=== PATIENT | female | born 1990 | race Caucasian/White ===

== ENCOUNTER 2019-11-13 | Inpatient (IN) | payer MEDICAID ==
[~2019-11-13] VITALS: Ht 157.5 cm; Wt 105.7 kg
[2019-11-13 00:04] VITALS: BP 105/68
--- NOTE | 2019-11-13 00:10 | NUR ---
PT TAKEN TO BED 6
--- NOTE | 2019-11-13 00:20 | NUR ---
29 year old female patient presents to the emergency department from home with c/o LUQ pain and epigastric pain that started x 2 hours. pt denies having hx of abdominal pain. upon arrival pt a/o x 4, gcs 15. denies headache/blurry vision. abdomen soft and non tender. normoactive bowel sounds on all quadrants. rr even and unlabored. denies sob/cough. denies diarrhea or constipation. + n/v x 2 hours. denies any injury or trauma. no other s/sx observed. DAMIAN Becker made aware of pt status. Awaiting MSE. pmhx: denies nka negative covid screen.
[2019-11-13] MEDS ORDERED: ONDANSETRON 4 MG/2 ML VIAL ONE (00:33)
[2019-11-13] MEDS ORDERED: MORPHINE SULFATE 4 MG/ML SYR ONE (00:34)
[2019-11-13] MEDS ORDERED: MORPHINE SULFATE 4 MG/ML SYR IVP ONE (00:35)
[2019-11-13] MEDS ORDERED: ONDANSETRON 4 MG/2 ML VIAL IVP ONE (00:35)
[2019-11-13 00:51] LABS: EOSINOPHILS # (AUTO) 0.1 K/uL (0-0.4); HEMATOCRIT 39.8 % (36-48); MONOCYTES # (AUTO) 0.9 K/uL (0.8-1.0); NEUTROPHILS # (AUTO) 5.7 K/uL (1.8-7.7)
[2019-11-13 00:55] LABS: BASOPHILS % (AUTO) 0.3 % (0.0-2.0); EOSINOPHILS % (AUTO) 1.2 % (0.0-4.0); HEMOGLOBIN 13.4 g/dL (12.0-16.0); LYMPHOCYTES % (AUTO) 36.9 % (20.5-51.1); MEAN CORPUSCULAR HEMOGLOBIN 29 pg (27-31); MEAN CORPUSCULAR HGB CONC 34 g/dL (33-37); MEAN CORPUSCULAR VOLUME 87.1 fL (80-94); MONOCYTES % (AUTO) 8.2 % (1.7-9.3); NEUTROPHILS % (AUTO) 53.4 % (42.2-75.2); PLATELET COUNT (AUTO) 107 K/uL (140-450); RED BLOOD CELL COUNT(AUTO) 4.57 MIL/uL (4.20-5.40); RED CELL DISTRIBUTION WIDTH 13.9 % (11.6-13.7); WHITE BLOOD COUNT (AUTO) 10.7 K/uL (4.8-10.8)
--- NOTE | 2019-11-13 01:00 | NUR ---
reports decreased pain from 10/10 to 5/10 and tolerable. no further needs at this time.
[2019-11-13 01:01] LABS: ANION GAP 16.4 (8-16); ASPARTATE AMINOTRANSFERASE 119 U/L (15-37); CARBON DIOXIDE 23.2 mmol/L (21-32); CHLORIDE 100 mmol/L (98-107); CREATININE 0.9 mg/dL (0.6-1.3); GFR ARICAN-AMERICAN 97 mL/min (>90); GLUCOSE 129 mg/dL (74-106); POTASSIUM 3.6 mmol/L (3.5-5.1); SODIUM SERUM 136 mmol/L (136-145); TOTAL BILIRUBIN 0.4 mg/dL (0.0-1.0); UREA NITROGEN, BLOOD 12 mg/dL (7-18)
[2019-11-13 01:12] LABS: LIPASE > 25403 U/L (73-393)
[2019-11-13] MEDS ORDERED: NACL 0.9% 1,000 ML IV ONE ×2 (01:20→03:35)
--- NOTE | 2019-11-13 01:26 | NUR ---
pt taken to CT via w/c
--- NOTE | 2019-11-13 01:33 | NUR ---
PT RETURN FROM CT
--- NOTE | 2019-11-13 04:25 | NUR ---
Patient admitted to the care of Dr. Garza. admitted to Med-surg room 126A. report given to Jennifer Erickson.
[2019-11-13 04:50] VITALS: BP 117/68
[2019-11-13] MEDS: DEXT 5% / NACL 0.45% 1,000 ML IV SCH ×3 (07:15→23:15)
[2019-11-13] MEDS ORDERED: POTASSIUM CHLORIDE 10 MEQ TABER PO PRN ×2 (07:30)
[2019-11-13] MEDS ORDERED: MAG SULF 2000 MG/WATER PREMIX 50 ML IV PRN ×2 (07:30)
[2019-11-13] MEDS ORDERED: MORPHINE SULFATE 2 MG/ML SYR IVP PRN (07:30)
[2019-11-13] MEDS ORDERED: DOCUSATE SODIUM 100 MG GELCAP PO PRN (07:30)
[2019-11-13] MEDS ORDERED: LORazepam 2 MG/ML VIAL IM/IVP PRN (07:30)
[2019-11-13] MEDS ORDERED: ZOLPIDEM 5 MG TAB PO PRN (07:30)
[2019-11-13] MEDS ORDERED: ACETAMINOPHEN 325 MG TAB PO PRN (07:30)
[2019-11-13] MEDS ORDERED: ONDANSETRON 4 MG/2 ML VIAL IM/IVP PRN (07:30)
--- NOTE | 2019-11-13 07:30 | NUR ---
RECEIVED PATIENT FROM ADMINISTRATIVE ASST NURSERADHA, FOR CONTINUITY OF CARE. AAOX4, NO SIGNS OF DISTRESS AND NO COMPLAINS OF PAIN. PATIENT ABLE TO MAKE NEEDS KNOWN AND FOLLOW COMMANDS. RESPIRATIONS EVEN AND UNLABORED ON ROOM AIR. IV ON THE RFA 20G WITH IVF RUNNING PER ORDERS, PATENT AND INTACT. SAFETY PRECAUTIONS IN PLACE, POC DISCUSSED AND PATIENT VERBALIZES UNDERSTANDING. CALL LIGHT WITHIN REACH. WILL CONTINUE TO MONITOR.
[2019-11-13 08:00] VITALS: BP 112/64
[2019-11-13 08:35] LABS: CHOL/HDL RATIO 3.6 (1-4.5); MAGNESIUM 2.1 mg/dL (1.8-2.4); THYROID STIMULATING HORMONE 4.93 uIU/mL (0.34-3.74)
--- NOTE | 2019-11-13 09:03 | NUR ---
PATIENT HAS BEEN SCREENED AND CATEGORIZED MODERATE NUTRITION RISK. PATIENT WILL BE SEEN WITHIN 3-5 DAYS OF ADMISSION. 11/15/19 11/17/[address]
--- NOTE | 2019-11-13 09:36 | NUR ---
NORCO PRN GIVEN FOR EPIGASTRIC PAIN 09/16. BP 119/78, HR 73. NO SIGNS OF DISTRESS NOTED. WILL CONTINUE TO MONITOR.
[2019-11-13] MEDS: HYDROcodone/APAP 5/325 MG 1 TAB TAB PO PRN (09:45)
[2019-11-13 10:08] LABS: PROTHROMBIN TIME 10.2 secs (10.8-13.4)
--- NOTE | 2019-11-13 10:10 | NUR ---
SPOKE TO DR. MOHAMUD. NEW ORDERS FOR GI CONSULT, DR. OCONNOR, AND SURGERY CONSULT, DR. MITCHELL, FOR POSSIBLE CHOLELITHIASIS. NEW ORDERS FOR HIDA SCAN WELL. WILL FOLLOW THROUGH. WILL CONTINUE TO MONITOR.
--- NOTE | 2019-11-13 10:56 | NUR ---
SILVERWARE WASHER NOTE: Patient's Orientation Unable To Assess Comments SW WAS UNABLE TO MEET PATIENT AT BEDSIDE DUE TO MEDICAL CONDITION. SW CONTACTED PATIENT'S FATHER JAMAL AND LEFT VM. Master Ship, Realtionship and Phone Number RENEE JETT BROTHER [phone] JAMAL JETT FATHER [phone] Healthcare Power of Mind Reader No Does Patient Have a POLST No Identifying Problems No Social Work Triggers Is A Social Work Consult Needed No Mandate Report Filed No Explanation Of Identifying Problems PATIENT IS A 29-YEAR-OLD FEMALE ADMITTED FOR PANCREATITIS. PATIENT HAS NO PERTINENT PMHX. Admitted From Home Pre-Admission Level Of Functioning Status Independent/Ambulatory Prior Resources/Services Used In Last 12 Months No Prior Resources Used Prior DME No Prior DME Used Living Situation Apartment Lives With Family Patient Had Caregiver No Home Support No Caregiver Issues Financial Issues No Known Financial Issue Referral To The Financial Counselor Needed No Factors/Needs No D/C Needs Identified Pt/Rep Participated In Discharge Plan Yes Patient/Family Agress With Discharge Plan Yes Discharge Plan Comments TENTATIVE DISCHARGE PLAN IS FOR PATIENT TO RETURN HOME. DC Plan Status Initiated
--- NOTE | 2019-11-13 11:00 | NUR ---
SPOKE TO iiyumaDILLAN FOR ORDERED HIDA SCAN. NEEDS CONFIRMATION OF PATIENT'S TEST. WILL CONFIRM FROM LAB. WILL CONTINUE TO MONITOR.
--- NOTE | 2019-11-13 11:30 | NUR ---
REPORTED TO DLILAN Raise TECH, ABOUT PATIENT'S NEGATIVE TEST. ETA FOR PROCEDURE IS AT 1530. WILL CONTINUE TO MONITOR.
[2019-11-13 16:00] VITALS: BP 106/71
--- NOTE | 2019-11-13 16:06 | NUR ---
DC PLANNING: THIS IS A 29 Y/O FEMALE PATIENT FROM HOME, WHO CAME IN DUE TO SHARP EPIGASTRIC PAIN THAT RADIATES TO THE LLQ. NO PAST MEDICAL HISTORY. INITIAL DIAGNOSIS OF PANCREATITIS. GI AND SURGERY CONSULTS IN PLACE. GALLBLADDER US SHOWED CHOLELITHIASIS. CT ABD PELVIS SHOWED CHOLELITHIASIS, PERIPANCREATIC INFLAMMATION SUGGEST PANCREATITIS. DC PLAN BACK TO HOME ONCE STABLE.
--- NOTE | 2019-11-13 16:35 | NUR ---
PATIENT IS OFF UNIT FOR HIDA SCAN PROCEDURE. NO SIGNS OF DISTRESS NOTED. WILL CONTINUE TO MONITOR.
[2019-11-13] MEDS ORDERED: MORPHINE SULFATE 4 MG/ML SYR IVP SCH (17:00)
--- NOTE | 2019-11-13 17:50 | NUR ---
PATIENT IS BACK FROM PROCEDURE. NO SIGNS OF DISTRESS NOTED. REPORTED THAT MORPHINE WAS NOT USED D/T CLEAR HIDA IMAGE. WILL CONTINUE TO MONITOR.
--- NOTE | 2019-11-13 19:15 | NUR ---
ENDORSED TO OPERATOR AUTOMATED PROCESS NURSE FOR CONTINUITY OF CARE.
[2019-11-13] MEDS ORDERED: POTASSIUM CHLORIDE 20% 40 MEQ/15 ML UDC GT ONE (19:20)
--- NOTE | 2019-11-13 19:20 | NUR ---
RECEIVED PT IN STABLE CONDITION FROM AM NURSE. AWAKE,ALERT AND ORIENTED X4. MED SURG PT. AMBULATORY. WITH NO C/O ANY ABDOMINAL PAIN AT THIS TIME. IVF INFUSING WELL ON THE RT AC G #20. CLEAR AND PATENT. PLAN OF CARE DISCUSSED AND VERBALIZED UNDERSTANDING. FREQ ROUNDS NEEDED. BED ON LOW POSITION. SIDE RAILS UP X2. CALL LIGHT WITHIN EASY REACH. WILL CONTINUE TO MONITOR.
--- NOTE | 2019-11-13 21:00 | NUR ---
MADE ROUNDS. PT IN BED. NO C/O ANY DISCOMFORT/PAIN NOTED.
--- NOTE | 2019-11-13 23:00 | NUR ---
CHECKED ON PT. ASLEEP. WITH NO S/S OF ANY DISCOMFORT NOTED. WILL CONTINUE TO MONITOR.
[2019-11-14 00:30] VITALS: BP 104/63
--- NOTE | 2019-11-14 01:00 | NUR ---
CHECKED ON PT. SLEEPING. IVF INFUSING WELL. NO S/S OF ANY DISCOMFORT NOTED.
[2019-11-14 02:10] LABS: APPEARANCE,URINE SL CLOUDY (CLEAR); BILIRUBIN,URINE NEGATIVE (NEGATIVE); BLOOD, URINE NEGATIVE (NEGATIVE); COLOR,URINE YELLOW (YELLOW); LEUKOCYTE ESTERASE ,URINE NEGATIVE (NEGATIVE); NITRITE, URINE POSITIVE (NEGATIVE); PH,URINE 6.5 (5.0-9.0); UGLUCOSE NEGATIVE (NEGATIVE)
[2019-11-14 02:29] LABS: BARBITURATE, URINE NEGATIVE ng/ml (NEG <=200); BENZODIAZEPINE, URINE NEGATIVE ng/mL (NEG <=200); CANNABINOID, URINE NEGATIVE ng/mL (NEG <=50); COCAINE, URINE NEGATIVE ng/mL (NEG <=300); OPIATE, URINE POSITIVE ng/mL (NEG <=2000); PHENCYCLIDINE SCREEN,URINE NEGATIVE ng/mL (NEG <=25)
[2019-11-14 02:34] LABS: RBC,URINE 0-5 /HPF (0-5)
[2019-11-14] MEDS: DEXT 5% / NACL 0.45% 1,000 ML IV SCH (02:38)
--- NOTE | 2019-11-14 04:45 | NUR ---
AWAKE. ON HER CELLPHONE. NO C/O ANY DISCOMFORT /PAIN .
[2019-11-14 06:43] LABS: BASOPHILS % (AUTO) 0.6 % (0.0-2.0); EOSINOPHILS # (AUTO) 0.2 K/uL (0-0.4); HEMATOCRIT 36.7 % (36-48); HEMOGLOBIN 12.3 g/dL (12.0-16.0); LYMPHOCYTES # (AUTO) 2.2 K/uL (2.5-16.5); LYMPHOCYTES % (AUTO) 36.2 % (20.5-51.1); MEAN CORPUSCULAR HEMOGLOBIN 30 pg (27-31); MEAN CORPUSCULAR HGB CONC 34 g/dL (33-37); MONOCYTES # (AUTO) 0.5 K/uL (0.8-1.0); MONOCYTES % (AUTO) 7.8 % (1.7-9.3); NEUTROPHILS # (AUTO) 3.2 K/uL (1.8-7.7); NEUTROPHILS % (AUTO) 52.4 % (42.2-75.2); PLATELET COUNT (AUTO) 210 K/uL (140-450); RED BLOOD CELL COUNT(AUTO) 4.17 MIL/uL (4.20-5.40); RED CELL DISTRIBUTION WIDTH 14.2 % (11.6-13.7)
[2019-11-14 07:07] LABS: T4 (THYROXINE) 9.5 ug/dL (4.5-12.0)
[2019-11-14 07:09] LABS: ANION GAP 8.6 (8-16); CARBON DIOXIDE 28.8 mmol/L (21-32); CREATININE 0.7 mg/dL (0.6-1.3); POTASSIUM 3.4 mmol/L (3.5-5.1)
--- NOTE | 2019-11-14 07:21 | NUR ---
ENDORSED PT IN STABLE CONDITION TO AM NURSE.
[2019-11-14] MEDS ORDERED: LIDOCAINE 1% 500 MG/50 ML VIAL ONE (07:36)
[2019-11-14] MEDS ORDERED: BUPIVACAINE-MPF/EPI 0.25% 30 ML VIAL INJ ONE (07:36)
[2019-11-14 07:44] LABS: BILIRUBIN,DIRECT 0.1 mg/dL (0.0-0.3); TOTAL BILIRUBIN 0.4 mg/dL (0.0-1.0)
--- NOTE | 2019-11-14 07:45 | NUR ---
Received report from AM RN, pt laying in bed, rr even and unlabored. Reports epigastric pain, with improvement in pain relief. Pt denies n/v or bowel changes. Abd soft round large tender to epigastric.
[2019-11-14 08:00] VITALS: BP 111/62
--- NOTE | 2019-11-14 08:10 | NUR ---
Pt stated Laparoscopic cholecystectomy intraoperative choloangiogram possible open was explained by doctor. Pt with no additional questions. Consent signed, witnessed at this time.
[2019-11-14] MEDS: POTASSIUM CHLORIDE 20% 40 MEQ/15 ML UDC GT SCH (08:39)
[2019-11-14] MEDS: SENNA 8.6 MG TAB PO SCH (08:39)
--- NOTE | 2019-11-14 08:39 | NUR ---
AM meds held due to surgery at 1030. Pt verbalized understanding.
[2019-11-14] MEDS ORDERED: NACL 0.9% 1,000 ML IV SCH (09:58)
[2019-11-14] MEDS ORDERED: ONDANSETRON 4 MG/2 ML VIAL IVP PRN (10:00)
[2019-11-14] MEDS ORDERED: HYDROmorphone 1 MG/ML AMP IVP PRN ×2 (10:00→12:05)
[2019-11-14] MEDS ORDERED: MEPERIDINE 25 MG/ML SYR IVP PRN (10:00)
--- NOTE | 2019-11-14 10:00 | NUR ---
Pt taken to OR at this time.
[2019-11-14] MEDS ORDERED: SUGAMMADEX SODIUM 200 MG/2 ML VIAL IV ONE (10:36)
[2019-11-14] MEDS ORDERED: PROPOFOL 200 MG/20 ML VIAL IV ONE (10:36)
[2019-11-14] MEDS ORDERED: ROCURONIUM 50 MG/5 ML VIAL IV ONE (10:36)
[2019-11-14] MEDS ORDERED: SEVOFLURANE 250 ML BTL INH ONE (10:36)
[2019-11-14] MEDS ORDERED: DEXAMETHASONE 4 MG/ML VIAL ONE (10:36)
[2019-11-14] MEDS ORDERED: SUCCINYLCHOLINE CHLORIDE 200 MG/10 ML VIAL IVP ONE (10:36)
[2019-11-14] MEDS ORDERED: LIDOCAINE 1% 500 MG/ 50 ML VIAL INJ ONE (11:35)
[2019-11-14] MEDS: HYDROmorphone PFS 2 MG/ML SYR ONE ×2 (11:52→12:02)
[2019-11-14] MEDS ORDERED: HYDROcodone/APAP 5/325 MG 1 TAB TAB PO PRN (12:05)
[2019-11-14 12:41] VITALS: BP 126/70
--- NOTE | 2019-11-14 12:42 | NUR ---
Received report from MACHINE TRACER. Pt arrives back to bed, AOx4, skin normal color warm and dry, rr even and unlabored. VS stable. Successful laparoscopic cholecystectomy with 25ml ESBL. 4 laparascopic incisions noted on abd, covered with skin glue. Pt reports tolerable abd pain after meds in OR. Denies n/v. Pt given sandwich, jello and water, pt in cardiac diet, pt instructed to advance diet as tolerated. All needs met.
--- NOTE | 2019-11-14 16:00 | NUR ---
Pt laying in bed, aox4, ambulatory to restroom, skin normal color warm and dry, rr even and unlabored. Reports tolerable diffuse abd pain, denies n/v. IVF infusing well. SCDs removed, pt encouraged to ambulate frequently to promote peristalsis. VS stable, mildly tachycardic. All needs met.
--- NOTE | 2019-11-14 19:20 | NUR ---
Transfer plan of care to Hina SPARROW
[2019-11-14] MEDS: HYDROcodone/APAP 5/325 MG 1 TAB TAB PO PRN (19:48)
[2019-11-14] MEDS ORDERED: POTASSIUM CHLORIDE 10 MEQ TABER PO SCH (20:05)
--- NOTE | 2019-11-14 21:00 | NUR ---
MED FOR ABD PAIN W/ NORCO TAB ORDERED W/ GOOD EFFECT NOTED. DENIES N/V. IV INTACT/PATENT/INFUSING ORDERED.
[2019-11-15] VITALS: BP 116/70
--- NOTE | 2019-11-15 | NUR ---
VSS. NO DISTRESS REPORTED/OBSERVED. IV INTACT/PATENT/INFUSING ORDERED. WILL CONT TO MONITOR PT STATUS.
[2019-11-15] MEDS: HYDROcodone/APAP 5/325 MG 1 TAB TAB PO PRN ×2 (01:53→10:14)
--- NOTE | 2019-11-15 02:04 | NUR ---
MED FOR ABD PAIN W/ NORCO 1 TAB PO ORDERED. IV INTACT/PATENT/INFUSING ORDERED. VSS. NO N/V OBSERVED/REPORTED.
[2019-11-15 06:35] LABS: BASOPHILS % (AUTO) 0.2 % (0.0-2.0); EOSINOPHILS % (AUTO) 0.4 % (0.0-4.0); HEMATOCRIT 37.3 % (36-48); HEMOGLOBIN 12.2 g/dL (12.0-16.0); LYMPHOCYTES # (AUTO) 2.6 K/uL (2.5-16.5); LYMPHOCYTES % (AUTO) 25.1 % (20.5-51.1); MEAN CORPUSCULAR HEMOGLOBIN 29 pg (27-31); MEAN CORPUSCULAR HGB CONC 33 g/dL (33-37); MONOCYTES # (AUTO) 0.7 K/uL (0.8-1.0); MONOCYTES % (AUTO) 6.8 % (1.7-9.3); NEUTROPHILS # (AUTO) 6.9 K/uL (1.8-7.7); NEUTROPHILS % (AUTO) 67.5 % (42.2-75.2); PLATELET COUNT (AUTO) 209 K/uL (140-450); RED BLOOD CELL COUNT(AUTO) 4.19 MIL/uL (4.20-5.40); WHITE BLOOD COUNT (AUTO) 10.2 K/uL (4.8-10.8)
--- NOTE | 2019-11-15 07:15 | NUR ---
RECEIVED REPORT FROM PLANT BIOLOGY PROFESSOR NURSE FOR CONTINUITY OF CARE. PATIENT IS AAO4, ON CARDIAC DIET. PATIENT AWAKE, RESTING BED. NO ACUTE DISTRESS NOTED. IV SITE @ RIGHT AC INTACT AND PATENT. IVF NS RUNNING AT 120CC/HR. SAFETY MEASURE IN PLACE. PLAN OF CARE DISCUSSED. VERBALIZED UNDERSTAND. WILL CONTINUE TO MONITOR.
[2019-11-15 08:00] VITALS: BP 125/81
[2019-11-15] MEDS ORDERED: NACL 0.9% 1,000 ML IV SCH (08:10)
[2019-11-15] MEDS: SENNA 8.6 MG TAB PO SCH (09:05)
[2019-11-15] MEDS: POTASSIUM CHLORIDE 20% 40 MEQ/15 ML UDC GT SCH (09:06)
--- NOTE | 2019-11-15 09:08 | NUR ---
SCHEDULED MORNING MEDICATION GIVEN. EDUCATION PROVIDED, VERBALIZED UNDERSTANDING. TOLERATED WELL. DEMONSTRATED THE PT HOW TO USE THE INCENTIVE SPIROMETER. VERBALIZED UNDERSTAND AND ABLE TO PERFORM. WILL CONTINUE TO MONITOR.
--- NOTE | 2019-11-15 10:14 | NUR ---
NORCO WAS ADMINISTERED PER PATIENT'S REQUESTS, PAIN LEVEL 8/10 AT UPPER ABDOMEN AREA. MED EDUCATION PROVIDED. PT VERBALIZED UNDERSTANDING. V/S CHECKED WNL. IVF RUNNING ORDERED. SAFETY MEASURES IN PLACE. WILL CONTINUE TO MONITOR.
[2019-11-15 12:57] LABS: ANION GAP 20.4 (8-16); CARBON DIOXIDE 18.6 mmol/L (21-32); CREATININE 0.7 mg/dL (0.6-1.3)
[2019-11-15 13:10] LABS: MAGNESIUM 2.2 mg/dL (1.8-2.4); PHOSPHORUS 3.8 mg/dL (2.5-4.9)
== END 2019-11-15 13:55 | disposition home or self-care (01) | DRG 263 ==
LOC: MED → MMU 03:40
PROC: 0FT44ZZ Resection of Gallbladder, Percutaneous Endoscopic Approach (ICD-10-PCS; principal; 2019-11-13)
PROC: BF101ZZ Fluoroscopy of Bile Ducts using Low Osmolar Contrast (ICD-10-PCS; 2019-11-13)
DX: K85.10 Biliary acute pancreatitis without necrosis or infection (principal); K80.20 Calculus of gallbladder without cholecystitis without obstruction; E66.9 Obesity, unspecified; E44.0 Moderate protein-calorie malnutrition; Z68.41 Body mass index [BMI] 40.0-44.9, adult; E87.6 Hypokalemia; E78.5 Hyperlipidemia, unspecified
CPT/HCPCS: 36415; 74300; 76705; 78445; 80048; 80053; 80076; 80305; 81001; 81025; 82150; 83036; 83690; 83735; 83880; 84100; 84436; 84443; 84702; 84703; 85025; 85610; 85730; 87081; 87086; 96374; 96375; 99285; A9510; C1887; J0330; J1100; J1170; J1644; J2001; J2270; J2405; J2704; J3490; J7030; J7042; Q0092; Q9965

== ENCOUNTER 2020-01-16 21:37 | Inpatient (IN) | payer MEDICAID ==
[~2020-01-16] VITALS: Ht 157.5 cm; Wt 56.7 kg
[2020-01-16 21:40] VITALS: BP 100/69
--- NOTE | 2020-01-16 21:49 | NUR ---
29 Y/O FEMALE C/O ABD PAIN X1 HR AGO. +N/V. DENIES DIARRHEA. DENIES ANY FEVER, CP, SOB, OR COUGH AT THIS TIME; PATIENT STATES 9/10 STABBING PAIN AT THIS TIME. VSS. ABD SOFT NON TENDER, GUARDING NOTED. MEDHX: PANCREATITIS, GALLBLADDER REMOVAL NKA RX: VICODIN X30 MINS WITH NO RELIEF
--- NOTE | 2020-01-16 21:56 | NUR ---
DR CONDE AT BEDSIDE EVALUATING PT
[2020-01-16] MEDS ORDERED: MORPHINE SULFATE 4 MG/ML SYR IVP ONE ×2 (22:00→22:35)
[2020-01-16] MEDS ORDERED: ALUMINUM HYD/MAG/SIMETHICONE 30 ML UDC PO ONE (22:00)
[2020-01-16] MEDS ORDERED: ONDANSETRON 4 MG/2 ML VIAL IVP ONE (22:00)
[2020-01-16] MEDS ORDERED: DICYCLOMINE HCL LIQUID 10 MG/5 ML UDC PO ONE (22:00)
--- NOTE | 2020-01-16 22:05 | NUR ---
PT UNABLE TO TOLERATE PO MEDS, DAMIAN MADE AWARE.
--- NOTE | 2020-01-16 22:07 | NUR ---
DR CONDE AT BEDSIDE PERFORMING ULTRASOUND
--- NOTE | 2020-01-16 22:10 | NUR ---
LAB AT BEDSIDE
--- NOTE | 2020-01-16 22:30 | NUR ---
PT C/O THAT PAIN MOVED TO LOWER RIGHT ABD. ERMD MADE AWARE
[2020-01-16 22:36] LABS: BASOPHILS % (AUTO) 0.3 % (0.0-2.0); EOSINOPHILS # (AUTO) 0.1 K/uL (0-0.4); EOSINOPHILS % (AUTO) 0.6 % (0.0-4.0); HEMOGLOBIN 14.6 g/dL (12.0-16.0); LYMPHOCYTES # (AUTO) 2.3 K/uL (2.5-16.5); LYMPHOCYTES % (AUTO) 17.9 % (20.5-51.1); MEAN CORPUSCULAR HEMOGLOBIN 29 pg (27-31); MEAN CORPUSCULAR HGB CONC 33 g/dL (33-37); MEAN CORPUSCULAR VOLUME 88.1 fL (80-94); MONOCYTES # (AUTO) 0.7 K/uL (0.8-1.0); MONOCYTES % (AUTO) 5.6 % (1.7-9.3); NEUTROPHILS # (AUTO) 9.6 K/uL (1.8-7.7); NEUTROPHILS % (AUTO) 75.6 % (42.2-75.2); PLATELET COUNT (AUTO) 281 K/uL (140-450); RED CELL DISTRIBUTION WIDTH 14.3 % (11.6-13.7); WHITE BLOOD COUNT (AUTO) 12.7 K/uL (4.8-10.8)
--- NOTE | 2020-01-16 22:42 | NUR ---
PT TAKEN TO CT SCAN VIA W/C
[2020-01-16 22:45] LABS: ANION GAP 11.6 (8-16); ASPARTATE AMINOTRANSFERASE 225 U/L (15-37); CARBON DIOXIDE 27.9 mmol/L (21-32); CHLORIDE 104 mmol/L (98-107); GFR ARICAN-AMERICAN 86 mL/min (>90); GLUCOSE 134 mg/dL (74-106); POTASSIUM 3.5 mmol/L (3.5-5.1); SODIUM SERUM 140 mmol/L (136-145); TOTAL BILIRUBIN 0.7 mg/dL (0.0-1.0); UREA NITROGEN, BLOOD 11 mg/dL (7-18)
--- NOTE | 2020-01-16 22:51 | NUR ---
PT RETURNED FROM CT VIA W/C
[2020-01-16] MEDS ORDERED: LACTATED RINGERS 1,000 ML IV ONE ×2 (22:55)
[2020-01-16 23:09] LABS: LIPASE > 1500 U/L (73-393)
[2020-01-16] MEDS ORDERED: ACETAMINOPHEN 325 MG TAB PO PRN (23:30)
[2020-01-16] MEDS ORDERED: ONDANSETRON 4 MG/2 ML VIAL IM/IVP PRN (23:30)
[2020-01-16] MEDS ORDERED: DOCUSATE SODIUM 100 MG GELCAP PO PRN (23:30)
--- NOTE | 2020-01-16 23:55 | NUR ---
LAB AT BEDSIDE
[2020-01-17 00:09] LABS: MAGNESIUM 2.1 mg/dL (1.8-2.4); PHOSPHORUS 4.7 mg/dL (2.5-4.9)
[2020-01-17 00:13] LABS: BARBITURATE, URINE NEGATIVE ng/ml (NEG <=200); BENZODIAZEPINE, URINE NEGATIVE ng/mL (NEG <=200); CANNABINOID, URINE NEGATIVE ng/mL (NEG <=50); COCAINE, URINE NEGATIVE ng/mL (NEG <=300); OPIATE, URINE NEGATIVE ng/mL (NEG <=2000); PHENCYCLIDINE SCREEN,URINE NEGATIVE ng/mL (NEG <=25)
--- NOTE | 2020-01-17 00:41 | NUR ---
Patient will be admitted to care of [facility]. Admited to TELEMETRY. Will go to room 108 B. Belongings list completed. Report to BENNY SPARROW.
--- NOTE | 2020-01-17 00:41 | NUR ---
RECEIVED FROM THE ED AMBULATORY A AO X 4, WITH RIGHT AC G 20 PATENT AND INTACT,INFUSING LR 1000 ML HR BOLUS. TELEMONITOR, ROOM AIR, POC REVIEWED, MRSA DONE, CALL LIGHT WITHIN REACH
[2020-01-17] MEDS: PANTOPRAZOLE 40 MG INJ VIAL IVP SCH ×2 (01:08→09:04)
[2020-01-17] MEDS: LACTATED RINGERS 1,000 ML IV SCH ×4 (01:09→19:27)
--- NOTE | 2020-01-17 01:15 | NUR ---
PT'S IVF AND MEDS ORDERED STARTED, WILL COLLECT URINE SOON PT PEES.
[2020-01-17] MEDS: MORPHINE SULFATE 2 MG/ML SYR IVP PRN ×3 (02:00→20:52)
--- NOTE | 2020-01-17 02:45 | NUR ---
PT INFORMED THAT SHE NEEDS URINALYSIS SPECIMEN, PT AWARE, STILL NO URINE OUTPUT, ALREADY HAVE HAD URINE OUTPUT AT THE ED EARLIER
[2020-01-17 04:00] VITALS: BP 100/69
[2020-01-17] MEDS: KETOROLAC 30 MG/ML VIAL IVP PRN ×3 (04:11→22:38)
--- NOTE | 2020-01-17 04:11 | NUR ---
PT C/O OF 10/10 EPIGASTRIC PAIN, TORADOL GIVEN WILL REASSESS
--- NOTE | 2020-01-17 05:11 | NUR ---
REASSESS PAIN MEDS THAT WAS GIVEN, PT SLEEPING DENIES PAIN, NOT IN RESPIRATORY DISTRESS
[2020-01-17 06:41] LABS: BASOPHILS % (AUTO) 0.3 % (0.0-2.0); EOSINOPHILS % (AUTO) 0.1 % (0.0-4.0); HEMATOCRIT 41.1 % (36-48); HEMOGLOBIN 13.7 g/dL (12.0-16.0); LYMPHOCYTES % (AUTO) 10.4 % (20.5-51.1); MEAN CORPUSCULAR HEMOGLOBIN 29 pg (27-31); MEAN CORPUSCULAR HGB CONC 33 g/dL (33-37); MEAN CORPUSCULAR VOLUME 88.2 fL (80-94); MONOCYTES # (AUTO) 0.4 K/uL (0.8-1.0); MONOCYTES % (AUTO) 4.3 % (1.7-9.3); NEUTROPHILS # (AUTO) 8.2 K/uL (1.8-7.7); NEUTROPHILS % (AUTO) 84.9 % (42.2-75.2); PLATELET COUNT (AUTO) 235 K/uL (140-450); RED BLOOD CELL COUNT(AUTO) 4.66 MIL/uL (4.20-5.40); RED CELL DISTRIBUTION WIDTH 14.1 % (11.6-13.7); WHITE BLOOD COUNT (AUTO) 9.7 K/uL (4.8-10.8)
--- NOTE | 2020-01-17 06:50 | NUR ---
PT SLEEPING COMFORTABLE, SUPINE IN BED, NO RESPIRATORY DISTRESS, DENIES PAIN
[2020-01-17 06:54] LABS: ANION GAP 13.8 (8-16); CARBON DIOXIDE 24.2 mmol/L (21-32); CREATININE 0.7 mg/dL (0.6-1.3)
--- NOTE | 2020-01-17 07:40 | NUR ---
RECEIVED FROM AIRPORT CONTROL OPERATOR NURSE, BENNY, PT IS AOX4, ON ROOM AIR, PT IS AWAKE AND SAFETY PRECAUTION IN PLACE, IV LINE NOTED ON THE RAC G. 20 WITH LR INFUSING AT 150 ML/HR, INTACT, PATENT, PT C/O ABDOMINAL PAIN OF 5/10, NO SIGN OF DISTRESS NOTED AND WILL MONITOR PT.
[2020-01-17 08:00] VITALS: BP 107/69
--- NOTE | 2020-01-17 08:04 | NUR ---
PATIENT HAS BEEN SCREENED AND CATEGORIZED LOW NUTRITION RISK. PATIENT WILL BE SEEN WITHIN 7 DAYS OF ADMISSION. 01/23/[address]
--- NOTE | 2020-01-17 09:04 | NUR ---
PT WAS GIVEN THE SCHEDULED AM MEDIACTION VIA IV PUSH, TOLERATED AND NO SIGN OF DISTRESS NOTED. WILL MONITOR PT.
--- NOTE | 2020-01-17 09:51 | NUR ---
PT IS OFF THE UNIT NOW FOR A CT ABDOMEN/PELVIS WITH INTRAVENOUS CONTRAST. PT IS STABLE AT THIS TIME.
--- NOTE | 2020-01-17 10:45 | NUR ---
PT WAS GIVEN PAIN MEDICATION VIA IV PUSH, FOR C/O PAIN RATE OF 9/10, BP IS 124/83, PULSE IS 60, RESPIRATION IS 18/MIN, O2 SATURATION IS AT 99%, WILL RE-ASSESS PAIN AND MONITOR PT.
[2020-01-17 11:03] LABS: APPEARANCE,URINE CLEAR (CLEAR); BILIRUBIN,URINE NEGATIVE (NEGATIVE); BLOOD, URINE NEGATIVE (NEGATIVE); COLOR,URINE YELLOW (YELLOW); LEUKOCYTE ESTERASE ,URINE NEGATIVE (NEGATIVE); NITRITE, URINE NEGATIVE (NEGATIVE); UGLUCOSE NEGATIVE (NEGATIVE)
[2020-01-17 12:00] VITALS: BP 119/73
--- NOTE | 2020-01-17 14:31 | NUR ---
PT WAS GIVEN PAIN MEDICATION NOW , BP IS 121/74, PULSE IS 66, O2 SATURATION IS AT 99%, RESPIRATION IS AT 18/MIN, WILL RE-ASSESS PAIN AND MONITOR PT.
[2020-01-17 16:00] VITALS: BP 111/63
--- NOTE | 2020-01-17 17:15 | NUR ---
PT IS RESTING AND READING HER BOOK NOW.
--- NOTE | 2020-01-17 19:20 | NUR ---
ENDORSED PT TO CANCER REGISTRY COORDINATOR NURSEKARUNA FOR CONTINUITY OF CARE.
--- NOTE | 2020-01-17 19:59 | NUR ---
RECEIVED PATIENT AWAKE IN BED. PATIENT AOX4. PT ON ROOM AIR, NO SOB OR S/S OF DISTRESS AT THIS TIME. PT DENIES N/V. NO C/O OF ABD PAIN AT THIS TIME. PT ON TELE MONITORING. BED LOWERED WITH CALL LIGHT WITHIN REACH.
[2020-01-17 20:00] VITALS: BP 111/78
--- NOTE | 2020-01-17 22:18 | NUR ---
PT ASLEEP IN BED. NO S/S OF DISTRESS NOTED
[2020-01-18] VITALS: BP 106/56
--- NOTE | 2020-01-18 02:09 | NUR ---
PT ASLEEP IN BED. NO S/S OF DISTRESS NOTED
[2020-01-18] MEDS: LACTATED RINGERS 1,000 ML IV SCH ×4 (02:35→23:30)
[2020-01-18 04:04] VITALS: BP 107/69
[2020-01-18] MEDS: MORPHINE SULFATE 2 MG/ML SYR IVP PRN (05:26)
[2020-01-18] MEDS ORDERED: MORPHINE SULFATE 2 MG/ML SYR IVP PRN (06:45)
--- NOTE | 2020-01-18 07:05 | NUR ---
RECEIVED FROM FARM APPRAISER NURSEKARUNA, PT IS AOX4, ON ROOM AIR, PT IS AWAKE AND SAFETY PRECAUTION IN PLACE, IV LINE NOTED ON THE RAC G. 20 WITH LR INFUSING AT 150 ML/HR, INTACT, PATENT, ON ROOM AIR, NO SIGN OF DISTRESS NOTED AND WILL MONITOR PT.
[2020-01-18 07:14] LABS: BASOPHILS % (AUTO) 0.2 % (0.0-2.0); EOSINOPHILS # (AUTO) 0.1 K/uL (0-0.4); EOSINOPHILS % (AUTO) 0.9 % (0.0-4.0); HEMATOCRIT 36.3 % (36-48); HEMOGLOBIN 12.3 g/dL (12.0-16.0); LYMPHOCYTES # (AUTO) 1.6 K/uL (2.5-16.5); LYMPHOCYTES % (AUTO) 16.7 % (20.5-51.1); MEAN CORPUSCULAR HEMOGLOBIN 30 pg (27-31); MEAN CORPUSCULAR HGB CONC 34 g/dL (33-37); MEAN CORPUSCULAR VOLUME 88.5 fL (80-94); MONOCYTES # (AUTO) 0.6 K/uL (0.8-1.0); MONOCYTES % (AUTO) 6.7 % (1.7-9.3); NEUTROPHILS # (AUTO) 7.4 K/uL (1.8-7.7); NEUTROPHILS % (AUTO) 75.5 % (42.2-75.2); PLATELET COUNT (AUTO) 195 K/uL (140-450); RED CELL DISTRIBUTION WIDTH 14.2 % (11.6-13.7); WHITE BLOOD COUNT (AUTO) 9.8 K/uL (4.8-10.8)
[2020-01-18 07:27] LABS: CARBON DIOXIDE 26.6 mmol/L (21-32); CREATININE 0.6 mg/dL (0.6-1.3); POTASSIUM 3.6 mmol/L (3.5-5.1); TOTAL BILIRUBIN 0.6 mg/dL (0.0-1.0)
[2020-01-18 08:00] VITALS: BP 116/74
[2020-01-18] MEDS: PANTOPRAZOLE 40 MG INJ VIAL IVP SCH (09:56)
--- NOTE | 2020-01-18 09:56 | NUR ---
PT WAS GIVEN THE SCHEDULED AM MEDICATION NOW VIA IV PUSH. WILL MONITOR PT.
--- NOTE | 2020-01-18 11:30 | NUR ---
PT IS SLEEPING NOW AND NO SIGN OF DISTRESS NOTED.
[2020-01-18 12:00] VITALS: BP 115/72
--- NOTE | 2020-01-18 13:20 | NUR ---
PT WAS SEEN AMBULATING TO THE BATHROOM AND DENIES PAIN NOW. WILL MONITOR PT.
--- NOTE | 2020-01-18 15:40 | NUR ---
PT'S IVF BAG WAS CHANGED NOW, PT DENIES PAIN AND IS WATCHING ON HER CP. NO SIGN OF DISTRESS NOTED.
[2020-01-18 16:00] VITALS: BP 103/62
--- NOTE | 2020-01-18 19:05 | NUR ---
ENDORSED PT TO TAX MAP TECHNICIAN NURSEGISELE FOR CONTINUITY OF CARE.
--- NOTE | 2020-01-18 19:15 | NUR ---
RECEIVED BEDSIDE REPORT FROM DAY SHIFT NURSE. PATIENT IS AWAKE, ALERT, AND COOPERATIVE. RESPIRATION EVEN UNLABORED ON ROOM AIR. NO DISTRESS NOTED. SKIN IS WARM AND DRY. IV PATENT AND INTACT. PLAN OF CARE WAS DISCUSSED. ALL SAFETY MEASURES IN PLACE. BED IS AT LOW POSITION. CALL LIGHT WITHIN REACH AND VERBALIZES ITS USE. WILL CONTINUE TO MONITOR.
[2020-01-18 20:00] VITALS: BP 118/77
--- NOTE | 2020-01-18 21:25 | NUR ---
PATIENT COMPLAINED OF ABDOMINAL PAIN 10/16. PRN PAIN MEDS ADMINISTERED PER ORDER. WILL CONTINUE TO MONITOR
--- NOTE | 2020-01-18 22:35 | NUR ---
CHECKED PATIENT. PATIENT SLEEPING RESPIRATION EVEN UNLABORED ON ROOM AIR. NO DISTRESS NOTED. WILL CONTINUE TO MONITOR
[2020-01-19] VITALS: BP 108/69
[2020-01-19] MEDS: KETOROLAC 30 MG/ML VIAL IVP PRN (00:08)
--- NOTE | 2020-01-19 00:11 | NUR ---
PATIENT WOKE UP FROM ABDOMINAL PAIN 09/16. PRN PAIN MED ADMINISTERED PER ORDER. WILL CONTINUE TO MONITOR
--- NOTE | 2020-01-19 03:09 | NUR ---
CHECKED PATIENT. PATIENT SLEEPING NO DISTRESS NOTED. WILL CONTINUE TO MONITOR.
[2020-01-19 04:00] VITALS: BP 97/67
--- NOTE | 2020-01-19 04:05 | NUR ---
VITALS WERE TAKEN. PATIENT IN STABLE CONDITION. NO DISTRESS NOTED WILL CONTINUE TO MONITORV
[2020-01-19] MEDS: LACTATED RINGERS 1,000 ML IV SCH (05:19)
[2020-01-19 07:00] LABS: BASOPHILS % (AUTO) 0.4 % (0.0-2.0); EOSINOPHILS # (AUTO) 0.2 K/uL (0-0.4); EOSINOPHILS % (AUTO) 1.5 % (0.0-4.0); HEMATOCRIT 32.9 % (36-48); LYMPHOCYTES # (AUTO) 2.1 K/uL (2.5-16.5); LYMPHOCYTES % (AUTO) 19.8 % (20.5-51.1); MEAN CORPUSCULAR HEMOGLOBIN 30 pg (27-31); MEAN CORPUSCULAR HGB CONC 34 g/dL (33-37); MEAN CORPUSCULAR VOLUME 88.2 fL (80-94); MONOCYTES # (AUTO) 0.8 K/uL (0.8-1.0); MONOCYTES % (AUTO) 7.4 % (1.7-9.3); NEUTROPHILS # (AUTO) 7.5 K/uL (1.8-7.7); NEUTROPHILS % (AUTO) 70.9 % (42.2-75.2); PLATELET COUNT (AUTO) 199 K/uL (140-450); RED BLOOD CELL COUNT(AUTO) 3.72 MIL/uL (4.20-5.40); RED CELL DISTRIBUTION WIDTH 13.8 % (11.6-13.7); WHITE BLOOD COUNT (AUTO) 10.6 K/uL (4.8-10.8)
[2020-01-19 07:03] LABS: CARBON DIOXIDE 26.6 mmol/L (21-32); CREATININE 0.6 mg/dL (0.6-1.3); POTASSIUM 3.6 mmol/L (3.5-5.1)
--- NOTE | 2020-01-19 07:20 | NUR ---
ENDORSED PATIENT TO DAY SHIFT NURSE AT BEDSIDE FOR CONTINUITY OF CARE
--- NOTE | 2020-01-19 07:22 | NUR ---
RECEIVED REPORT FROM NIGHT NURSE PATIENT IS AAOX4 ON ROOM AIR, FULL LIQUID DIET, SKIN INTACT, IV SITES INTACT AND PATENT ON RIGHT AC, AMBULATORY,SAFETY MEASURES IN PLACE, CALL LIGHT WITHIN REACH. WILL CONTINUE TO MONITOR.
[2020-01-19 08:00] VITALS: BP 115/72
[2020-01-19] MEDS ORDERED: PANT40EC PO (08:02)
[2020-01-19] MEDS: PANTOPRAZOLE 40 MG INJ VIAL IVP SCH (08:10)
--- NOTE | 2020-01-19 08:13 | NUR ---
MEDICATION DUE GIVEN AND CHECK VITAL SIGNS BP 115/72, LA 91 OXYGEN SATURATION AT 95%. NO DISTRESS NOTED. SAFETY MEASURES IN PLACE AND CALL LIGHT WITHIN REACH. WILL CONTINUE TO MONITOR.
--- NOTE | 2020-01-19 10:36 | NUR ---
DISCHARGED INSTRUCTION GIVEN AT BEDSIDE AND ENCOURAGED PATIENT TO CONTINUE MEDICATION AND TO FOLLOW UP WITH PCP AFTER 5 DAYS, ENCOURAGED TO INCREASE WATER INTAKE AND TO EAT HEALTH DIET,ENCOURAGE PATIENT TO SEEK MEDICAL HELP INCASE OF MEDICAL EMERGENCIES. REMOVED TELEMONITOR AND RETURNED TO NUMERICAL CONTROL TOOL PROGRAMMER, IV SITES INTACT AND COMPLETE NO BLEEDING NOTED, ANSWERED PT QUESTIONS AND VERBALIZES UNDERSTANDING, REMOVE ID BANDS AND PT CHANGED TO HER OWN CLOTHES, ESCORTED PT TO FRONT LOBBY PT IS DISCHARGE TO HOME, PT IS STABLE.
--- NOTE | 2020-01-19 11:42 | NUR ---
SOCIAL WORK NOTE: SW ATTEMPTED TO COMPLETE ASSESSMENT, BUT PATIENT WAS DISCHARGED.
== END 2020-01-19 10:36 | disposition home or self-care (01) | DRG 282 ==
LOC: MED 21:37 → MTU 23:35
PROVIDERS: ADMIT Hospitalist; ATTEND Hospitalist
DX: K85.90 Acute pancreatitis without necrosis or infection, unspecified (principal); E87.2 Acidosis; E66.9 Obesity, unspecified; Z68.22 Body mass index [BMI] 22.0-22.9, adult; Z71.3 Dietary counseling and surveillance; Z83.3 Family history of diabetes mellitus; Z82.49 Family history of ischemic heart disease and other diseases of the circulatory system; R73.9 Hyperglycemia, unspecified; E86.0 Dehydration
CPT/HCPCS: 36415; 80048; 80053; 80305; 81003; 82150; 83605; 83615; 83690; 83735; 84100; 84478; 84702; 85025; 87040; 87081; 96361; 96374; 96375; 99285; C9113; J1885; J2270; J2405; J7120; Q9967

== ENCOUNTER 2021-08-23 06:10 | Emergency (ER) | payer MEDICAID, OTHER ==
[~2021-08-23] VITALS: Ht 154.9 cm; Wt 79.4 kg
[~2021-08-23 06:10] MED LIST: PANT40EC PO
[2021-08-23 06:14] VITALS: BP 112/61
--- NOTE | 2021-08-23 06:21 | NUR ---
PATIENT TO BED AMBULATORY
[2021-08-23] MEDS ORDERED: NACL 0.9% 1,000 ML IV ONE (06:35)
[2021-08-23] MEDS ORDERED: KETOROLAC 30 MG/ML VIAL IVP ONE (06:35)
[2021-08-23] MEDS ORDERED: ONDANSETRON 4 MG/2 ML VIAL IVP ONE (06:35)
[2021-08-23] MEDS ORDERED: NACL 0.9% 1,000 ML IV SCH (06:35)
[2021-08-23] MEDS ORDERED: PANTOPRAZOLE 40 MG INJ VIAL IVP ONE (06:35)
--- NOTE | 2021-08-23 06:55 | NUR ---
COVID SWAB AND FLU SWAB COLLECTED AND SENT TO LAB.
[2021-08-23 07:03] LABS: BASOPHILS % (AUTO) 0.1 % (0.0-2.0); EOSINOPHILS % (AUTO) 0.1 % (0.0-4.0); HEMATOCRIT 42.2 % (36-48); HEMOGLOBIN 14.3 g/dL (12.0-16.0); LYMPHOCYTES # (AUTO) 0.2 K/uL (2.5-16.5); LYMPHOCYTES % (AUTO) 2.6 % (20.5-51.1); MEAN CORPUSCULAR HEMOGLOBIN 30 pg (27-31); MEAN CORPUSCULAR HGB CONC 34 g/dL (33-37); MEAN CORPUSCULAR VOLUME 88.5 fL (80-94); MONOCYTES # (AUTO) 0.3 K/uL (0.8-1.0); MONOCYTES % (AUTO) 3.5 % (1.7-9.3); NEUTROPHILS # (AUTO) 7.3 K/uL (1.8-7.7); NEUTROPHILS % (AUTO) 93.7 % (42.2-75.2); PLATELET COUNT (AUTO) 238 K/uL (140-450); RED BLOOD CELL COUNT(AUTO) 4.76 MIL/uL (4.20-5.40); RED CELL DISTRIBUTION WIDTH 13.9 % (11.6-13.7); WHITE BLOOD COUNT (AUTO) 7.8 K/uL (4.8-10.8)
[2021-08-23 07:11] LABS: ALBUMIN 4.2 g/dL (3.4-5.0); ANION GAP 14.3 (8-16); CARBON DIOXIDE 24.1 mmol/L (21-32); CREATININE 0.7 mg/dL (0.6-1.3); POTASSIUM 3.4 mmol/L (3.5-5.1); TOTAL BILIRUBIN 0.6 mg/dL (0.0-1.0)
--- NOTE | 2021-08-23 07:42 | NUR ---
URINE WALKED TO LAB
[2021-08-23] MEDS ORDERED: KETOROLAC 30 MG/ML VIAL ONE (08:20)
[2021-08-23] MEDS ORDERED: ONDA-188 SL (08:20)
[2021-08-23 08:40] VITALS: BP 112/61
== END 2021-08-23 08:47 | disposition home or self-care (01) ==
LOC: MED 06:10
DX: A08.4 Viral intestinal infection, unspecified (principal); E86.0 Dehydration; Z20.822 Contact with and (suspected) exposure to COVID-19; Z90.49 Acquired absence of other specified parts of digestive tract
CPT/HCPCS: 36415; 80053; 81002; 81025; 83690; 84703; 85025; 87426; 87804; 96361; 96374; 96375; 99284; C9113; J1885; J2405; J7030

== ENCOUNTER 2021-08-24 23:50 | Emergency (ER) | payer OTHER ==
[~2021-08-24] VITALS: Ht 152.4 cm; Wt 79.4 kg
[~2021-08-24 23:50] MED LIST changes: +ONDA-188 SL
[2021-08-24 23:55] VITALS: BP 110/70
--- NOTE | 2021-08-25 00:12 | NUR ---
ERMD AT BEDSIDE
[2021-08-25] MEDS ORDERED: PYRIDOXINE 50 MG TAB ONE (00:22)
[2021-08-25 00:40] VITALS: BP 110/70
--- NOTE | 2021-08-25 00:40 | NUR ---
Patient discharged with v/s stable. Written and verbal after care instructions given and explained. Patient verbalized understanding. Ambulatory with steady gait. All questions addressed prior to discharge. Advised to follow up with PMD.
== END 2021-08-25 00:40 | disposition home or self-care (01) ==
LOC: MED 23:50
DX: K52.9 Noninfective gastroenteritis and colitis, unspecified (principal)
CPT/HCPCS: 99281

== ENCOUNTER 2022-06-03 16:31 | Emergency (ER) | payer OTHER ==
[~2022-06-03] VITALS: Ht 152.4 cm; Wt 74.8 kg
[2022-06-03 16:49] VITALS: BP 112/70
--- NOTE | 2022-06-03 16:51 | NUR ---
PT SWABBED FOR COVID AND FLU. URINE COLLECTED
--- NOTE | 2022-06-03 17:17 | NUR ---
PLACED ON MONITOR, PULSE OX AND B/P ,VSS, PT STATES WHEN SHE COUGHS, HER CHEST HURTS
[2022-06-03 18:07] LABS: BASOPHILS # (AUTO) 0.1 K/uL (0.00-0.22); BASOPHILS % (AUTO) 0.7 % (0.0-2.0); EOSINOPHILS # (AUTO) 0.2 K/uL (0-0.4); HEMATOCRIT 34.6 % (36-48); HEMOGLOBIN 11.7 g/dL (12.0-16.0); LYMPHOCYTES # (AUTO) 1.9 K/uL (2.5-16.5); LYMPHOCYTES % (AUTO) 24.7 % (20.5-51.1); MEAN CORPUSCULAR HEMOGLOBIN 30 pg (27-31); MEAN CORPUSCULAR HGB CONC 34 g/dL (33-37); MEAN CORPUSCULAR VOLUME 87.6 fL (80-94); MONOCYTES # (AUTO) 0.4 K/uL (0.8-1.0); MONOCYTES % (AUTO) 5.7 % (1.7-9.3); NEUTROPHILS # (AUTO) 5.2 K/uL (1.8-7.7); NEUTROPHILS % (AUTO) 66.9 % (42.2-75.2); PLATELET COUNT (AUTO) 251 K/uL (140-450); RED BLOOD CELL COUNT(AUTO) 3.95 MIL/uL (4.20-5.40); RED CELL DISTRIBUTION WIDTH 13.8 % (11.6-13.7); WHITE BLOOD COUNT (AUTO) 7.8 K/uL (4.8-10.8)
[2022-06-03 18:19] LABS: ALBUMIN 3.7 g/dL (3.4-5.0); ANION GAP 12.1 (8-16); CARBON DIOXIDE 27.6 mmol/L (21-32); CREATININE 0.8 mg/dL (0.6-1.3); POTASSIUM 3.7 mmol/L (3.5-5.1); TOTAL BILIRUBIN 0.3 mg/dL (0.0-1.0)
[2022-06-03] MEDS ORDERED: KETOROLAC 30 MG/ML VIAL IVP ONE (18:20)
[2022-06-03] MEDS ORDERED: AMOX-1230 PO (19:25)
--- NOTE | 2022-06-03 19:41 | NUR ---
32yo F here for chest pain. Awake alert and oriented x 4. Denies chest pain or shortness of breath now. No distress. VS stable. Waiting on result of 2nd trop and will likely discharge home.
--- NOTE | 2022-06-03 20:08 | NUR ---
Cleared to discharge home. Instructions and prescriptions given. IV removed. Ambulated out of ED c steady gait.
[2022-06-03 20:10] VITALS: BP 103/57
== END 2022-06-03 20:10 | disposition home or self-care (01) ==
LOC: MED 16:31
DX: J02.9 Acute pharyngitis, unspecified (principal); Z20.822 Contact with and (suspected) exposure to COVID-19; R07.9 Chest pain, unspecified; Z79.899 Other long term (current) drug therapy
CPT/HCPCS: 36415; 70360; 71045; 80053; 81025; 84484; 85025; 85379; 87426; 87804; 96374; 99285; J1885

== ENCOUNTER 2023-02-21 09:24 | Emergency (ER) | payer SELFPAY ==
[~2023-02-21] VITALS: Ht 154.9 cm; Wt 76.2 kg
[~2023-02-21 09:24] MED LIST changes: +AMOX-1230 PO
[2023-02-21 09:29] VITALS: BP 110/74; PULSE 67; RESP 16; TEMP 97.8; O2SAT 99
[2023-02-21] MEDS ORDERED: NITR100C7 PO (10:14)
[2023-02-21] MEDS ORDERED: NAPR-1704 PO (10:14)
[2023-02-21] MEDS ORDERED: PHEN-1877 PO (10:14)
== END 2023-02-21 10:24 | disposition home or self-care (01) ==
LOC: MED 09:24
DX: R31.9 Hematuria, unspecified (principal); R10.2 Pelvic and perineal pain; R30.0 Dysuria; R35.0 Frequency of micturition; Z79.899 Other long term (current) drug therapy; Z79.1 Long term (current) use of non-steroidal anti-inflammatories (NSAID); Z79.2 Long term (current) use of antibiotics
CPT/HCPCS: 81002; 81025; 87491; 99283